=== PATIENT | female | born 1990 | race African-American/Black ===

== ENCOUNTER 2017-03-02 20:20 | Emergency (ER) | payer OTHER ==
[~2017-03-02] VITALS: Ht 172.7 cm; Wt 88.0 kg
[2017-03-02 20:21] VITALS: BP 146/96; PULSE 50; RESP 16; TEMP 98.7; O2SAT 98
[2017-03-02] MEDS ORDERED: TRAM50TA PO (20:33)
--- NOTE | 2017-03-02 20:37 | PD ---
HPI Chief Complaint: Oral / Dental Pain or Problem Time Seen by Provider: 20:33 Travel History International Travel<30 days: No Contact w/Intl Traveler<30days: No Traveled to known affect area: No History of Present Illness HPI 27-year-old female presents to emergency Department with complaints of dental pain. She states that part of a cavity on her left lower mandibular area broke off a few days ago. Since that she's had increasing pain. She states that that she's had cavities in this tooth as well as her maxilla for some time now. She was seen by [facility] 5 months ago and was given a prescription for amoxicillin which she did not fill. She states that she filled the prescription today and started taking it. She is taking ibuprofen without relief of her pain. She states the pain is in her left lower mandible but goes up into her left maxilla. She states the pain is moderate but can be severe at times. No alleviating factors. No fever chills. PFSH Past Medical History Medical History: Denies Significant Hx Social History Alcohol Use: Yes Tobacco Use: No Allergies-Medications (Allergen,Severity, Reaction): Coded Allergies: No Known Allergies (Unverified , 03/02/17) Reported Meds & Prescriptions Reported Meds & Active Scripts Active Tramadol (Tramadol HCl) 50 Mg Tab 50-100 Mg PO Q6H PRN Review of Systems Except as stated in HPI: all other systems reviewed are Neg Physical Exam Narrative GENERAL: Well-developed, well-nourished in no acute distress. Nontoxic appearing. HEAD: Normocephalic, atraumatic. EYES: Pupils equal round and reactive. Extraocular motions intact. No scleral icterus. No injection or drainage. ENT: TMs clear without erythema. The external auditory canals clear. Nose: clear . Posterior pharynx is pink and moist. No tonsillar edema or exudate. Uvula midline. Airway patent. Patient has diffuse. Opted disease. She has a large dental carry in tooth #13. Mild gingival erythema. No gingival distention. She also has dental caries in tooth #19 and 20. NECK: Trachea midline.Supple, nontender, moves head freely. No central bony tenderness or spasm. CARDIOVASCULAR: Regular rate and rhythm without murmurs, gallops, or rubs. RESPIRATORY: Clear to auscultation. Breath sounds equal bilaterally. No wheezes , rales, or rhonchi. GASTROINTESTINAL: Abdomen soft, non-tender, nondistended. No hepato-splenomegaly , or palpable masses. No guarding. EXTREMITIES: No clubbing, cyanosis, or edema. No joint tenderness, effusion, or edema noted. BACK: Nontender without deformity or crepitance. No flank tenderness. Data Data Last Documented VS Vital Signs Date Time Temp Pulse Resp B/P Pulse Ox O2 Delivery O2 Flow Rate FiO2 03/02/17 20:21 98.7 50 16 146/96 98 Room Air Orders Acetamin-Hydrocod 325-5 Mg ([place] 5-325 (03/02/17 20:45) MDM Medical Decision Making Medical Screen Exam Complete: Yes Emergency Medical Condition: Yes Medical Record Reviewed: Yes Differential Diagnosis MDM: Moderate Differential diagnoses: Dental abscess, dental caries, osteitis, cellulitis Narrative Course Patient's given 1 Lortab 5 mg by mouth. She just filled a prescription today for amoxicillin No. 30 tablets. She is encouraged to complete her antibiotics. This is dental caries, dentalgia Diagnosis Primary Impression: Dentalgia Additional Impression: Dental caries Patient Instructions: Narcotic given in the ED, General Instructions Additional Instructions: Rest. [place] gargles. [place] oil on cotton balls. 3 Advil every 6 hours. Amoxicillin and Ultram. follow-up with a dentist as soon as possible. And return to the ER if any problems. Med/Other Pt SpecificInfo: Prescription(s) given Scripts Tramadol 50 Mg [id number] Mg PO Q6H PRN (PAIN) #20 TAB Ref 0 Prov:Boby Seals MD 03/02/17 Disposition: 01 DISCHARGE HOME Condition: Stable Lav[facility] Blair March 02, 2017 20:37
[2017-03-02] MEDS ORDERED: ACETAMINOPHEN/HYDROcodone 325 MG/5 MG TAB PO ONE (20:45)
== END 2017-03-02 21:27 | disposition home or self-care (01) ==
LOC: NEPK 20:20
DX: K02.9 Dental caries, unspecified (principal)
CPT/HCPCS: 99283

== ENCOUNTER 2017-12-06 20:45 | Emergency (ER) | payer OTHER ==
[~2017-12-06] VITALS: Ht 162.6 cm; Wt 108.0 kg
[~2017-12-06 20:45] MED LIST: TRAM50TA PO
[2017-12-06 21:18] VITALS: BP 179/112; PULSE 66; RESP 18; TEMP 98.4; O2SAT 97
[2017-12-06] MEDS ORDERED: ALBU6.7H INH (21:42)
--- NOTE | 2017-12-06 21:50 | PD ---
HPI Chief Complaint: Injury Time Seen by Provider: 21:30 Travel History International Travel<30 days: No Contact w/Intl Traveler<30days: No Traveled to known affect area: No History of Present Illness HPI 27-year-old female presents emergency department with complaints of a painful lump to her left clavicle over the last several days. She states that she is unsure whether she has a dislocation although she did not have an injury. She states that her bra straps rub on her shoulders due to her breasts. She denies any fever chills. No rashes or lesions. She does state that she has some tenderness in her left upper shoulder as well. Patient finally goes on to state that she has lost her albuterol inhaler and would like to get a refill. She does have a history of asthma. 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 No recent illness. No fever chills, cough, congestion, nausea, vomiting, numbness, tingling or weakness. PFSH Past Medical History Narrative Medical Asthma Asthma: Yes Depression: Yes Diminished Hearing: No Tetanus Vaccination: < 5 Years Influenza Vaccination: No ?: Not LMP: pt has an IUD and states irrgular periods Past Surgical History Surgical History: No Previous Surgery Social History Alcohol Use: Yes (socially) Tobacco Use: No Substance Use: Yes (marijuana daily) Allergies-Medications (Allergen,Severity, Reaction): Coded Allergies: No Known Allergies (Unverified Adverse Reaction, Unknown, 12/06/17) Reported Meds & Prescriptions Reported Meds & Active Scripts Active Tramadol (Tramadol HCl) 50 Mg Tab 50-100 Mg PO Q6H PRN Review of Systems General / Constitutional: No: Fever Eyes: No: Visual changes HENT: Positive: Neck Pain, No: Headaches Cardiovascular: No: Chest Pain or Discomfort Respiratory: Positive: Cough, Shortness of Breath, Wheezing Gastrointestinal: No: Abdominal Pain Genitourinary: No: Dysuria Musculoskeletal: Positive: Pain (Left clavicle and shoulder) Skin: No Rash Neurologic: No: Weakness Psychiatric: No: Depression Endocrine: No: Polydipsia Hematologic/Lymphatic: No: Easy Bruising Physical Exam Narrative GENERAL: Well-developed, well-nourished in no acute distress. Nontoxic appearing. HEAD: Normocephalic, atraumatic. EYES: Pupils equal round and reactive. Extraocular motions intact. No scleral icterus. No injection or drainage. ENT: TMs clear without erythema. The external auditory canals clear. Nose: clear . Posterior pharynx is pink and moist. No tonsillar edema or exudate. Uvula midline. Airway patent. NECK: Trachea midline.Supple, nontender, moves head freely. No central bony tenderness or spasm. CARDIOVASCULAR: Regular rate and rhythm without murmurs, gallops, or rubs. RESPIRATORY: Clear to auscultation. Breath sounds equal bilaterally. No wheezes , rales, or rhonchi. GASTROINTESTINAL: Abdomen soft, non-tender, nondistended. No hepato-splenomegaly , or palpable masses. No guarding. EXTREMITIES: No clubbing, cyanosis, or edema. No joint tenderness, effusion, or edema noted. Patient has a mobile palpable tender nodular density under the skin over the proximal third of the left clavicle. This is movable and is tender. This measures approximately 1 cm. There is no fluctuance or pointing. No erythema or warmth. There is no pain on palpation of the sternoclavicular joint, clavicle or acromioclavicular joint. There is no erythema, warmth or edema. Patient does have some left trapezius tenderness. No cervical or supraclavicular adenopathy. BACK: Nontender without deformity or crepitance. No flank tenderness. Data Data Last Documented VS Vital Signs Date Time Temp Pulse Resp B/P (MAP) Pulse Ox O2 Delivery O2 Flow Rate FiO2 12/06/17 21:18 98.4 66 18 179/112 (134) 97 Orders Orders Ed Discharge Order (12/06/17 21:40) [facility] Medical Decision Making Medical Screen Exam Complete: Yes Emergency Medical Condition: Yes Medical Record Reviewed: Yes Differential Diagnosis Differential diagnosis: Lipoma, cyst, abscess, foreign body, asthma Narrative Course Patient presents requesting evaluation of a possible clavicle injury. Her clavicle is unremarkable on exam but she does have a tender mobile nodular density over her proximal clavicle. There is no fluctuance or pointing. There is no erythema or warmth. Is tender to touch. There appears to be approximately 1 cm. She also has left paracervical myofascial tenderness. The patient is advised that she can treat it symptomatically with warm compresses and ibuprofen. She will need to follow-up with her primary care doctor if her lesion does not resolve potentially get a biopsy or excision of the lesion to fully determine the etiology. At this time I do not believe antibiotics or any type of incision and drainage is indicated. She does have some myofascial muscle tenderness to the left neck. There is no adenopathy identified. Diagnosis Primary Impression: Left soft tissue mass Additional Impression: Asthma Patient Instructions: General Instructions Additional Instructions: Rest. Warm compresses. 3 Advil every 6 hours. Albuterol for asthma. Follow-up with her primary care doctor within the next week. May need to have a excisional biopsy of this lesion if it does not improve. Return to the ER for any problems. Med/Other Pt SpecificInfo: Prescription(s) given Scripts Albuterol 6.7 GM Inh (Proventil Hfa 6.7 GM Inh) 90 Mcg/Act Aer 2 PUFF INH Q4-6H Y for SHORTNESS OF BREATH, #1 INHALER 0 Refills Prov: Jammie Berman MD 12/06/17 Disposition: 01 DISCHARGE HOME Condition: Stable Lavon Blair Dec 06, 2017 21:50
== END 2017-12-06 21:55 | disposition home or self-care (01) ==
LOC: NEPD 20:45
DX: R22.2 Localized swelling, mass and lump, trunk (principal); J45.909 Unspecified asthma, uncomplicated; F12.90 Cannabis use, unspecified, uncomplicated
CPT/HCPCS: 99283